=== PATIENT | female | born 1945 | race Two or more races ===

== ENCOUNTER 2024-06-28 16:14 | Emergency (ER) | payer OTHER ==
[~2024-06-28] VITALS: Ht 170.2 cm; Wt 77.8 kg
[~2024-06-28 16:14] MED LIST: CIPR-173 PO
[2024-06-28] MEDS: ACETAMINOPHEN 325 MG TAB PO ONE (17:21)
[2024-06-28 17:39] VITALS: BP 145/66; PULSE 89; RESP 16; TEMP 98.7; O2SAT 97
[2024-06-28 17:45] LABS: Basophils # (auto) 0.1 10 ^3/uL (0-0.2); Basophils % (auto) 0.6 % (0.0-2.0); Eosinophils # (auto) 0.2 10 ^3/uL (0-0.8); Eosinophils % (auto) 1.7 % (0.0-7.0); Hematocrit 33.8 % (36.0-46.0); Hemoglobin 10.9 g/dL (12.2-16.2); Lymphocytes % (auto) 32.6 % (10.0-50.0); Mean Corpuscular Hemoglobin 28.5 pg (28.0-32.0); Mean Corpuscular Hgb Conc. 32.2 g/dL (32.0-36.0); Mean Corpuscular Volume 88.7 fL (80.0-100.0); Monocytes % (auto) 7.9 % (0.0-12.0); Neutrophils # (auto) 7.1 10 ^3/uL (1.6-8.6); Neutrophils % (auto) 57.2 % (37.0-80.0); Nucleated Red Blood Cells % 0.1 %; Platelet Count (auto) 287 10^3/uL (140-450); Red Blood Cells 3.82 10^6/uL (4.0-5.20); Red Cell Distribution Width 15.4 % (11.8-14.3); White Blood Cell 12.4 10^3/uL (4.4-10.8)
[2024-06-28 17:48] LABS: Urine Amorphous Crystal FEW /hpf (None Seen); Urine Bacteria FEW /hpf (None Seen); Urine Blood Negative /uL (Negative); Urine Clarity Turbid (Clear); Urine Color Yellow (Yellow); Urine Mucus FEW (None Seen); Urine Protein, UAD TRACE (Negative); Urine Specific Gravity 1.019 (1.001-1.035); Urine Urobilinogen Normal (Negative); Urine WBC 10 /hpf (0 - 5)
[2024-06-28 17:51] LABS: Chloride 112 mmol/L (98-107); Potassium 4.3 mmol/L (3.5-5.1); Sodium 145 mmol/L (136-145)
[2024-06-28 17:52] LABS: Anion Gap 8 (5-15); Carbon Dioxide 25 mmol/L (20-31)
[2024-06-28 17:53] LABS: Calcium 10.6 mg/dL (8.7-10.4)
[2024-06-28 17:57] LABS: Glucose 137 mg/dL (74-106)
[2024-06-28 17:58] LABS: BUN/Creatinine Ratio 14.4 (10.0-20.0); Blood Urea Nitrogen 13 mg/dL (9-23)
[2024-06-28] MEDS ORDERED: NITR-87 PO (19:23)
== END 2024-06-28 19:57 | disposition home or self-care (01) ==
LOC: ER 16:22
DX: N39.0 Urinary tract infection, site not specified (principal); E11.9 Type 2 diabetes mellitus without complications; E78.5 Hyperlipidemia, unspecified; I10 Essential (primary) hypertension; K21.9 Gastro-esophageal reflux disease without esophagitis; Z88.0 Allergy status to penicillin; Z90.49 Acquired absence of other specified parts of digestive tract; Z98.51 Tubal ligation status; Z87.891 Personal history of nicotine dependence
CPT/HCPCS: 36415; 74176; 80048; 81001; 85025

== ENCOUNTER 2025-01-14 19:43 | Emergency (ER) | payer MEDICAID, OTHER ==
[~2025-01-14] VITALS: Ht 165.1 cm; Wt 75.0 kg
[~2025-01-14 19:43] MED LIST changes: +NITR-87 PO
--- NOTE | 2025-01-14 20:10 | ECG ---
[facility] Test Date: 2025-01-14 Test Time: 20:09:20 Pat Name: HUAN VALENTINE Department: ED Room: Gender: F Planer Off Bearer: TOYA : 1945 Requested By: EMERGENCY EMERGENCY Order Number: [id number] Reading MD: Measurements Intervals [place] Rate: 71 P: 61 NE: 160 QRS: -7 QRSD: 90 T: 45 QT: 411 QTc: 447 Interpretive Statements Sinus rhythm Minimal ST depression, anterior leads Please click the below link to view image of tracing.
[2025-01-14 20:42] LABS: Urine Bacteria None Seen /hpf (None Seen)
[2025-01-14 20:45] LABS: Basophils # (auto) 0.1 10 ^3/uL (0-0.2); Basophils % (auto) 0.8 % (0.0-2.0); Eosinophils # (auto) 0.1 10 ^3/uL (0-0.8); Eosinophils % (auto) 0.5 % (0.0-7.0); Hematocrit 36.1 % (36.0-46.0); Hemoglobin 11.6 g/dL (12.2-16.2); Lymphocytes # (auto) 4.2 10 ^3/uL (0.4-5.4); Lymphocytes % (auto) 22.7 % (10.0-50.0); Mean Corpuscular Hemoglobin 28.5 pg (28.0-32.0); Mean Corpuscular Hgb Conc. 32.1 g/dL (32.0-36.0); Mean Corpuscular Volume 88.6 fL (80.0-100.0); Monocytes % (auto) 5.4 % (0.0-12.0); Neutrophils # (auto) 13.1 10 ^3/uL (1.6-8.6); Neutrophils % (auto) 70.6 % (37.0-80.0); Platelet Count (auto) 256 10^3/uL (140-450); Red Blood Cells 4.07 10^6/uL (4.0-5.20); Red Cell Distribution Width 15.7 % (11.8-14.3); White Blood Cell 18.5 10^3/uL (4.4-10.8)
[2025-01-14 20:53] LABS: Potassium 4.1 mmol/L (3.5-5.1); Sodium 143 mmol/L (136-145)
[2025-01-14 20:54] LABS: Anion Gap 10 (5-15); Calcium 10.3 mg/dL (8.7-10.4); Carbon Dioxide 26 mmol/L (20-31)
--- NOTE | 2025-01-14 20:54 | DVH ---
CHEST RADIOGRAPH Indication: dizzy Technique: Single frontal view of the chest was obtained Comparison: None FINDINGS: Lines and Tubes: None Lungs: No focal consolidation. Pleura: No effusion. No pneumothorax. Cardiomediastinal contours: There is cardiomegaly Bones: No acute osseous abnormality. IMPRESSION: 1. Cardiomegaly 2. No evidence of airspace consolidation or pulmonary venous congestion
--- NOTE | 2025-01-14 20:57 | DVH ---
EXAM: CT HEAD WITHOUT CONTRAST INDICATION: dizzy EXAM DATE: 01/14/2025 08:27 PM COMPARISON: None TECHNIQUE: CT of the head without intravenous contrast. Radiation Dose Information: CTDI volume is 51.43 mGy. Dose-length product is 927.51 mGy*cm FINDINGS: There is no evidence of acute intracranial hemorrhage, extra-axial collection, mass effect, midline s hift, herniation or hydrocephalus. There is global atrophy. The ventricles, sulci and cisterns are ag e appropriate. The drew-white differentiation is intact. The visualized paranasal sinuses and mastoid air cells are clear. The surrounding soft tissues and osseous structures are unremarkable. IMPRESSION: 1. No evidence of acute intracranial hemorrhage, mass effect or hydrocephalus. END IMPRESSION:
[2025-01-14 20:59] LABS: BUN/Creatinine Ratio 16.5 (10.0-20.0); Blood Urea Nitrogen 15 mg/dL (9-23)
[2025-01-14 21:07] LABS: Chloride 107 mmol/L (98-107); Glucose 123 mg/dL (74-106)
[2025-01-14 21:08] LABS: Urine Blood Negative /uL (Negative); Urine Clarity Clear (Clear); Urine Color Light-Yellow (Yellow); Urine Protein, UAD Negative (Negative); Urine Specific Gravity 1.011 (1.001-1.035); Urine Squamous Epithelial Cell FEW /hpf (<5); Urine Urobilinogen Normal (Negative); Urine WBC 1 /HPF (0-5); Urine pH 7.5 (5.0-9.0)
--- NOTE | 2025-01-14 21:52 | ED.PDOC ---
History of Present Illness HPI Comments 79-year-old female with history of DM, GERD, HTN, brought in by daughter for c/o room-spinning dizziness with associated nausea, that began at around 1500 this afternoon. Patient reports dizziness is provoked whenever standing and is relieved whenever laying down. She denies any headache, fever, vomiting, focal weakness, head injury, chest pain, shortness of breath, numbness, tingling, or other associated symptoms. She states she has had similar symptoms in the past, and was told she had vertigo. Chief Complaint: Dizziness Time Seen by MD: 20:10 Reviewed Notes: Nurses Notes, Medications, Allergies Allergies: Coded Allergies: Penicillins (Verified Allergy, Unknown, 07/29/23) Home Meds Active Scripts Ondansetron Odt 4MG Tab (ZOFRAN PO) 4 Mg Tb, 4 MG PO TID PRN, #30 TAB prn nausea/vomiting ODT TAB-DISSOLVE IN MOUTH, THEN SWALLOW Prov:BRIGETTE JIMENEZ MD 01/15/25 Meclizine HCl (Meclizine 25) 25 Mg Tab, 1-2 TAB PO TID, #30 TAB prn dizziness Prov:BRIGETTE JIMENEZ MD 01/15/25 Nitrofurantoin Monohydrate Mac (Macrobid) 100 Mg Cap, 100 MG PO BID for 5 Days, #10 CAP Prov:MERCY CROSS MD 06/28/24 Ciprofloxacin Hcl (Cipro) 500 Mg Tab, 1 TAB PO BID, #14 TAB Prov:MERCY CROSS MD 07/29/23 Information Source: Patient Mode of Arrival: Wheelchair Severity: Moderate Timing: Hours Duration: Minutes Prehospital treatment: None Past Medical History PAST MEDICAL HISTORY: DM, GERD, HTN Surgical History: Appendectomy, BTL, Cholecystectomy, Surgical History (Other): breast augmentation "ball" cysts removal 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 Moist mucous membranes.) Neck: Full Range of Motion, Normal Inspection Respiratory: Lungs Clear, No Accessory Muscle Use, No Respiratory Distress, Normal Breath Sounds Cardiovascular: No Edema, No JVD, Regular Rate/Rhythm Breast Exam: Deferred Gastrointestinal: Non Tender, Soft Genitalia: Deferred Pelvic: Deferred Rectal: Deferred Extremities: Normal inspection, Normal range of motion, Non-tender, No pedal edema Neurologic: Alert (Oriented x4), Normal Affect, Normal Mood, Other (Ambulatory. Rapid head movement reproduces dizziness symptoms.) Cerebellar Function: NOT DONE Reflexes: NOT DONE Skin: Dry, Normal Color, Warm Lymphatic: NOT DONE Was a procedure done? Was a procedure done?: No EKG EKG : Comments Sinus rhythm, rate 70, normal intervals, left axis deviation, normal QRS, nonspecific T change. Differential Dx Considerations may include: positional vertigo, vestibular neuritis, CVA, TIA, orthostasis, electrolyte imbalance, dehydration, viral syndrome, UTI, among others X-Ray, Labs, Meds, VS Vital Signs Date Time Temp Pulse Resp B/P (MAP) Pulse Ox O2 Delivery O2 Flow Rate FiO2 01/14/25 21:53 98.0 72 16 166/63 (97) 96 98.0 01/14/25 20:09 71 01/14/25 19:43 97.6 73 16 186/80 (115) 95 97.6 Lab Test 01/14/25 21:31 01/14/25 20:31 01/14/25 20:30 Range/Units Troponin I High Sensitivity 3 L 3 L </=34 ng/L White Blood Count 18.5 H 4.4-10.8 10^3/uL Red Blood Count 4.07 4.0-5.20 10^6/uL Hemoglobin 11.6 L 12.2-16.2 g/dL Hematocrit 36.1 36.0-46.0 % Mean Corpuscular Volume 88.6 80.0-100.0 fL Mean Corpuscular Hemoglobin 28.5 28.0-32.0 pg Mean Corpuscular Hemoglobin Concent 32.1 32.0-36.0 g/dL Red Cell Distribution Width 15.7 H 11.8-14.3 % Platelet Count 256 140-450 10^3/uL Mean Platelet Volume 9.9 6.9-10.8 fL Neutrophils (%) (Auto) 70.6 37.0-80.0 % Lymphocytes (%) (Auto) 22.7 10.0-50.0 % Monocytes (%) (Auto) 5.4 0.0-12.0 % Eosinophils (%) (Auto) 0.5 0.0-7.0 % Basophils (%) (Auto) 0.8 0.0-2.0 % Neutrophils # (Auto) 13.1 H 1.6-8.6 10 ^3/uL Lymphocytes # (Auto) 4.2 0.4-5.4 10 ^3/uL Monocytes # (Auto) 1.0 0-1.3 10 ^3/uL Eosinophils # (Auto) 0.1 0-0.8 10 ^3/uL Basophils # (Auto) 0.1 0-0.2 10 ^3/uL Nucleated Red Blood Cells 0.0 % Sodium Level 143 136-145 mmol/L Potassium Level 4.1 3.5-5.1 mmol/L Chloride Level 107 98-107 mmol/L Carbon Dioxide Level 26 20-31 mmol/L Anion Gap 10 5-15 Blood Urea Nitrogen 15 9-23 mg/dL Creatinine 0.91 0.550-1.02 mg/dL Glomerular Filtration Rate Calc 64 >90 mL/min BUN/Creatinine Ratio 16.5 10.0-20.0 Serum Glucose 123 H 74-106 mg/dL Lactic Acid Level 1.0 0.4-2.0 mmol/L Calcium Level 10.3 8.7-10.4 mg/dL B-Type Natriuretic Peptide 73.31 0-100 pg/mL Urine Color Light-yellow Yellow Urine Clarity Clear Clear Urine pH 7.5 5.0-9.0 Urine Specific [place] 1.011 1.001-1.035 Urine Protein Negative Negative Urine Ketones Negative Negative Urine Blood Negative Negative /uL Urine Nitrite Negative Negative Urine Bilirubin Negative Negative Urine Urobilinogen Normal Negative mg/dL Urine Leukocyte Esterase Negative Negative /uL Urine RBC 1 0 - 4 /hpf Urine Microscopic WBC 1 0-5 /HPF Urine Squamous Epithelial Cells Few <5 /hpf Urine Bacteria None seen None Seen /hpf Urine Glucose Normal Normal mg/dL [facility] [id number] [place] [id number] Ph: [phone] DIAGNOSTIC IMAGING Diagnostic Imaging Report : [id number] Signed PATIENT: HUAN VALENTINE ACCT: [id number] UNIT: [id number] : 1945 LOC: ER ROOM / BED: / AGE / SEX: 79 / F ADM STATUS: REG ER SERVICE 17 ORDERING PHYSICIAN: BRIGETTE JIMENEZ MD PROCEDURE(s): HWOCT - HEAD WITHOUT CONTRAST REASON: dizzy ORDER NUMBER(s): [id number], ACCESSION NUMBER(s): [id number] EXAM: CT HEAD WITHOUT CONTRAST INDICATION: dizzy EXAM DATE: 01/14/2025 08:27 PM COMPARISON: None TECHNIQUE: CT of the head without intravenous contrast. Radiation Dose Information: CTDI volume is 51.43 mGy. Dose-length product is 927.51 mGy*cm FINDINGS: There is no evidence of acute intracranial hemorrhage, extra-axial collection, mass effect, midline shift, herniation or hydrocephalus. There is global atrophy. The ventricles, sulci and cisterns are age appropriate. The drew-white differentiation is intact. The visualized paranasal sinuses and mastoid air cells are clear. The surrounding soft tissues and osseous structures are unremarkable. IMPRESSION: 1. No evidence of acute intracranial hemorrhage, mass effect or hydrocephalus. END IMPRESSION: ATED BY: ALEX JACOBS MD DICTATED DATE/TIME: 01/14/252053 SIGNED BY: ALEX JACOBS MD SIGNED DATE/TIME: 01/14/252053 CC: [place] [id number] Ph: [phone] DIAGNOSTIC IMAGING Diagnostic Imaging Report : [id number] Signed PATIENT: HUAN VALENTINE ACCT: [id number] UNIT: [id number] : 1945 LOC: ER ROOM / BED: / AGE / SEX: 79 / F ADM STATUS: REG ER SERVICE 17 ORDERING PHYSICIAN: BRIGETTE JIMENEZ MD PROCEDURE(s): CXR1 - CHEST XRAY 1 VIEW REASON: dizzy ORDER NUMBER(s): [id number], ACCESSION NUMBER(s): [id number] CHEST RADIOGRAPH Indication: dizzy Technique: Single frontal view of the chest was obtained Comparison: None FINDINGS: Lines and Tubes: None Lungs: No focal consolidation. Pleura: No effusion. No pneumothorax. Cardiomediastinal contours: There is cardiomegaly Bones: No acute osseous abnormality. IMPRESSION: 1. Cardiomegaly 2. No evidence of airspace consolidation or pulmonary venous congestion ATED BY: ALEX JACOBS MD DICTATED DATE/TIME: 01/14/252050 SIGNED BY: ALEX JACOBS MD SIGNED DATE/TIME: 01/14/252050 CC: X-Ray, Labs, Meds, VS Comment 79-year-old female with history of DM, GERD, HTN, brought in by daughter for c/o room-spinning dizziness with associated nausea Vitals remarkable for BP 186/80 Exam remarkable for reproducible dizziness with rapid head movements Rhythm strip independently interpreted by me: Sinus rhythm, rate 70, no ectopy. CT head IMPRESSION: 1. No evidence of acute intracranial hemorrhage, mass effect or hydrocephalus. Chest x-ray IMPRESSION: 1. Cardiomegaly 2. No evidence of airspace consolidation or pulmonary venous congestion CBC remarkable for WBC 18.5, metabolic panel unremarkable, BNP and 2 serial troponins negative, UA unremarkable, lactate normal Patient treated with the following in the ED: Meclizine 50 mg p.o., Zofran ODT 4 mg p.o. On re-evaluation at 12:00 a.m. 0, patient states she feels better and would like to be discharged home. She is neurologically intact. Blood pressure is 166/63 and other vitals are stable. Hospitalization was considered, however the patient had rapid improvement of symptoms with treatment in the ED, workup is essentially unremarkable except for leukocytosis, and I no longer feel hospitalization is necessary. Patient now appears stable for discharge with close outpatient follow-up with her primary physician. Rx meclizine, Zofran Time of 1ST Reevaluation: 20:30 Reevaluation 1ST: Unchanged Time of 2ND Reevaluation: 00:00 Reevaluation 2ND: Improved Patient Education/Counseling: Treatment, Need For Follow Up Family Education/Counseling: No Family Present Departure 1 Departure Time of Disposition: 00:00 Impression: Primary Impression: Vertigo Additional Impression: Leukocytosis Qualified Codes: D72.829 - Elevated white blood cell count, unspecified Disposition: HOME / SELF CARE / HOMELESS Condition: Stable Additional Instructions: Your head CT and chest x-ray were unremarkable. Your blood tests showed an elevated white blood cell count. This can be from stress, infection, or other conditions. There is no evidence of infection in the rest of your workup. I have prescribed medication for your symptoms. Follow-up with your primary doctor in 1-2 days for recheck of blood tests and re-evaluation of your dizziness. Return to ER for persistent or worsening symptoms. [place] [id number] Ph: [phone] DIAGNOSTIC IMAGING Diagnostic Imaging Report : [id number] Signed PATIENT: HUAN VALENTINE ACCT: [id number] UNIT: [id number] : 1945 LOC: ER ROOM / BED: / AGE / SEX: 79 / F ADM STATUS: REG ER SERVICE 17 ORDERING PHYSICIAN: BRIGETTE JIMENEZ MD PROCEDURE(s): HWOCT - HEAD WITHOUT CONTRAST REASON: dizzy ORDER NUMBER(s): [id number], ACCESSION NUMBER(s): [id number] EXAM: CT HEAD WITHOUT CONTRAST INDICATION: dizzy EXAM DATE: 01/14/2025 08:27 PM COMPARISON: None TECHNIQUE: CT of the head without intravenous contrast. Radiation Dose Information: CTDI volume is 51.43 mGy. Dose-length product is 927.51 mGy*cm FINDINGS: There is no evidence of acute intracranial hemorrhage, extra-axial collection, mass effect, midline shift, herniation or hydrocephalus. There is global atrophy. The ventricles, sulci and cisterns are age appropriate. The drew-white differentiation is intact. The visualized paranasal sinuses and mastoid air cells are clear. The surrounding soft tissues and osseous structures are unremarkable. IMPRESSION: 1. No evidence of acute intracranial hemorrhage, mass effect or hydrocephalus. END IMPRESSION: ATED BY: ALEX JACOBS MD DICTATED DATE/TIME: 01/14/252053 [place] [id number] Ph: [phone] DIAGNOSTIC IMAGING Diagnostic Imaging Report : [id number] Signed PATIENT: HUAN VALENTINE ACCT: [id number] UNIT: [id number] : 1945 LOC: ER ROOM / BED: / AGE / SEX: 79 / F ADM STATUS: REG ER SERVICE 17 ORDERING PHYSICIAN: BRIGETTE JIMENEZ MD PROCEDURE(s): CXR1 - CHEST XRAY 1 VIEW REASON: dizzy ORDER NUMBER(s): [id number], ACCESSION NUMBER(s): [id number] CHEST RADIOGRAPH Indication: dizzy Technique: Single frontal view of the chest was obtained Comparison: None FINDINGS: Lines and Tubes: None Lungs: No focal consolidation. Pleura: No effusion. No pneumothorax. Cardiomediastinal contours: There is cardiomegaly Bones: No acute osseous abnormality. IMPRESSION: 1. Cardiomegaly 2. No evidence of airspace consolidation or pulmonary venous congestion ATED BY: ALEX JACOBS MD DICTATED DATE/TIME: 01/14/252050 e-Prescriptions Ondansetron Odt 4MG Tab (ZOFRAN PO) 4 Mg Tb 4 MG PO TID PRN, #30 TAB prn nausea/vomiting ODT TAB-DISSOLVE IN MOUTH, THEN SWALLOW Prov: BRIGETTE JIMENEZ MD 01/15/25 Meclizine HCl (Meclizine 25) 25 Mg Tab 1-2 TAB PO TID, #30 TAB prn dizziness Prov: BRIGETTE JIMENEZ MD 01/15/25 Discharged With: Relative Critical Care Note Critical Care Time?: No Stability Stability form required: No Heart Score Heart Score: Heart Score Response (Comments) Value History N/A 0 EKG N/A 0 Age N/A 0 Risk Factors N/A 0 Troponin N/A 0 Total 0 I personally scribed for BRIGETTE JIMENEZ MD ([email or web address]) on 01/14/25 at 21:52. Electronically submitted by Miguel A Fan ([email or web address]). BRIGETTE JIMENEZ MD January 14, 2025 21:52
[2025-01-15] MEDS ORDERED: MECL1TAB42 PO (00:10)
[2025-01-15] MEDS ORDERED: ZOFR4T PO (00:10)
[2025-01-15 00:56] VITALS: BP 163/64; PULSE 68; RESP 18; TEMP 97.9; O2SAT 98
[2025-01-15] MEDS: MECLIZINE HCL 25 MG TAB PO ONE (00:56)
[2025-01-15] MEDS: ONDANSETRON ODT 4 MG TAB PO ONE (00:57)
== END 2025-01-15 01:02 | disposition home or self-care (01) ==
LOC: ER 19:43
DX: R42 Dizziness and giddiness (principal); D72.829 Elevated white blood cell count, unspecified; E11.9 Type 2 diabetes mellitus without complications; I10 Essential (primary) hypertension; Z90.49 Acquired absence of other specified parts of digestive tract; Z98.51 Tubal ligation status; Z88.0 Allergy status to penicillin; Z79.899 Other long term (current) drug therapy
CPT/HCPCS: 36415; 70450; 71045; 80048; 81001; 82947; 83605; 83880; 84484; 85025; 87040; 93005; 99285; J8597; Q0162